=== PATIENT | female | born 1990 | race Caucasian/White ===

== ENCOUNTER 2022-12-18 07:19 | Inpatient (IN) ==
[2022-12-18] MEDS ORDERED: LIDOCAINE 1% LOCAL 20 ML VIAL INFIL PRN (09:02)
[2022-12-18] MEDS ORDERED: miSOPROStoL 50 MCG TAB PO ONE (09:02)
[2022-12-18] MEDS ORDERED: OXYTOCIN 30 UNITS/500 ML BAG IV PRN (09:02)
--- NOTE | 2022-12-18 09:08 | Obstetrical Progress Note ---
Date of Service December 18, 2022 Assessment & Plan (1) Post-dates , delivered, current hospitalization: Plan: 32yo G1 @ 40.4 weeks gestation Unremarkable course Here for post dates induction Bedside sono: VT FHR; CAT1 Ctx; Minimal VE:Ft/thick/post Cervidil #1 placed Admission and Anticipated Discharge Date Admission Date: December 18, 2022 Results & Data Vital Signs (Past 12 Hours) Vital Signs Temp Pulse Resp BP 12/18/22 07:44 36.3 C L 18 12/18/22 07:36 90 123/78
[2022-12-18] MEDS ORDERED: Nursing to Pharmacy Communication SCH (09:45)
[2022-12-18 09:51] LABS: Hematocrit (blood only) 36.9 % (37.0-47.0); Hemoglobin 12.7 g/dl (12.0-16.0); Mean Corpuscular Hemoglobin 31.8 pg (25.0-34.0); Mean Corpuscular Hgb Conc 34.4 g/dL (32.0-36.0); Mean Corpuscular Volume 92.3 fL (80.0-100.0); Mean Platelet Volume 10.2 fL (9.4-12.4); Platelet Count 243 K/uL (130-400); RDW Coefficient of Variation 13.2 % (11.5-14.5); RDW Standard Deviation 44.5 fL (36.4-46.3); White Blood Count 10.27 K/ul (4.8-10.8)
[2022-12-18] MEDS ORDERED: miSOPROStoL 50 MCG TAB PO SCH (12:00)
[2022-12-18] MEDS: miSOPROStoL 50 MCG TAB PO SCH ×3 (17:18→23:05)
[2022-12-18] MEDS ORDERED: PENICILLIN G POTASSIUM 6 MU in DEXTROSE 5% 250 ML IV STA (18:58)
--- NOTE | 2022-12-18 20:26 | Obstetrical Progress Note ---
Date of Service December 18, 2022 Assessment & Plan (1) Post-dates , delivered, current hospitalization: Plan: Induction for post dates Pt doing well No complaints FHR; CAT1 Ctx .Mild, irregular Cytotec X 2 given Plan Cervidil after dinner Admission and Anticipated Discharge Date Admission Date: December 18, 2022 Results & Data Vital Signs (Past 12 Hours) Vital Signs Temp Pulse Resp BP 12/18/22 19:00 18 12/18/22 19:00 36.9 C 18 12/18/22 19:02 77 12/18/22 19:02 124/71 12/18/22 15:05 20 12/18/22 15:05 36.6 C 20 12/18/22 15:06 75 12/18/22 15:06 118/66 12/18/22 11:08 71 12/18/22 11:08 /77
[2022-12-18] MEDS ORDERED: DINOPROSTONE 10 MG INSERT PV ONE (20:28)
--- NOTE | 2022-12-18 21:27 | Obstetrical Progress Note ---
Date of Service December 18, 2022 Assessment & Plan (1) Post-dates , delivered, current hospitalization: Plan: Induction of labor FHR; CAT1 Ctx; Minimal VE; ft/thick/post Cervidil placed in vagina Admission and Anticipated Discharge Date Admission Date: December 18, 2022 Results & Data Vital Signs (Past 12 Hours) Vital Signs Temp Pulse Resp BP 12/18/22 19:00 18 12/18/22 19:00 36.9 C 18 12/18/22 19:02 77 12/18/22 19:02 124/71 12/18/22 15:05 20 12/18/22 15:05 36.6 C 20 12/18/22 15:06 75 12/18/22 15:06 118/66 12/18/22 11:08 71 12/18/22 11:08 118/77
[2022-12-19] MEDS: miSOPROStoL 50 MCG TAB PO SCH ×4 (02:28→18:08)
[2022-12-19] MEDS: OXYTOCIN 30 UNITS/500 ML BAG IV PRN (10:08)
[2022-12-19] MEDS: LACTATED RINGER'S 1,000 ML IV PRN ×2 (10:08→19:57)
--- NOTE | 2022-12-19 14:16 | Labor Progress Brief Note ---
Date of Service December 19, 2022 Assessment & Plan Admission and Anticipated Discharge Date Admission Date: December 18, 2022 Physical Exam Genitourinary: Manual OB Exam: + cervical dilation fingertip, + cervical effacement 50% and + station high OB Exam Monitor Tracing: + external FHT monitor used, + external uterine monitor used, + category I and + normal FHT variability Patient remains high and I am unable to break the water at this time. We will continue Pitocin at this time as she is irwin every 2 to 3 minutes. Results & Data Vital Signs (Past 12 Hours) Vital Signs Temp Pulse Resp BP 12/19/22 14:01 82 117/63 12/19/22 12:55 87 130/67 12/19/22 12:02 77 124/75 12/19/22 11:17 36.5 C 71 20 113/64 12/19/22 10:03 85 125/74 12/19/22 08:23 36.8 C 76 136/71 12/19/22 06:59 36.9 C 77 20 123/72 12/19/22 02:56 36.8 C 61 18 120/77
[2022-12-19] MEDS: PENICILLIN G POTASSIUM 3 MU in DEXTROSE 5% 100 ML IV PRN ×3 (16:02→23:57)
--- NOTE | 2022-12-19 18:55 | Labor Progress Brief Note ---
Date of Service December 19, 2022 Assessment & Plan Admission and Anticipated Discharge Date Admission Date: December 18, 2022 Physical Exam Genitourinary: Manual OB Exam: + cervical dilation fingertip, + cervical effacement 50% and + station high OB Exam Monitor Tracing: + external FHT monitor used, + external uterine monitor used, + category I and + normal FHT variability essentially no change in cervix despite maximum Oxytocin now at 21 mU. Contractions are now every 2-3 minutes with pain level mostly 1-2. She was given option to stop Oxytocin and place another Cervidil, stop Oxytocin and place Diaz for mechanical ripening and restart Oxytocin in AM. Patient is in agreement with Diaz bulb tonight and rest overnight with Oxytocin in AM. Results & Data Vital Signs (Past 12 Hours) Vital Signs Temp Pulse Resp BP 12/19/22 18:08 36.7 C 78 20 120/73 12/19/22 17:05 81 120/71 12/19/22 16:04 78 124/72 12/19/22 15:03 77 120/68 12/19/22 14:01 82 117/63 12/19/22 12:55 87 130/67 12/19/22 12:02 77 124/75 12/19/22 11:17 36.5 C 71 20 113/64 12/19/22 10:03 85 125/74 12/19/22 08:23 36.8 C 76 136/71 12/19/22 06:59 36.9 C 77 20 123/72
[2022-12-19] MEDS ORDERED: BUTORPHANOL TARTRATE 1 MG/ML VIAL IV PRN (22:57)
--- NOTE | 2022-12-19 22:57 | Labor Progress Brief Note ---
Date of Service December 19, 2022 Assessment & Plan Admission and Anticipated Discharge Date Admission Date: December 18, 2022 Physical Exam Genitourinary: Manual OB Exam: + cervical dilation fingertip, + cervical effacement 50% and + station high OB Exam Monitor Tracing: + external FHT monitor used, + external uterine monitor used, + category I and + normal FHT variability Diaz inserted into cervix with 30 ml. saline Results & Data Vital Signs (Past 12 Hours) Vital Signs Temp Pulse Resp BP 12/19/22 22:38 71 122/77 12/19/22 19:15 16 12/19/22 19:15 36.6 C 16 12/19/22 19:14 75 128/78 12/19/22 18:08 36.7 C 78 20 120/73 12/19/22 17:05 81 120/71 12/19/22 16:04 78 124/72 12/19/22 15:03 77 120/68 12/19/22 14:01 82 117/63 12/19/22 12:55 87 130/67 12/19/22 12:02 77 124/75 12/19/22 11:17 36.5 C 71 20 113/64
[2022-12-20] MEDS: miSOPROStoL 50 MCG TAB PO SCH ×3 (00:08→19:11)
[2022-12-20] MEDS: PENICILLIN G POTASSIUM 3 MU in DEXTROSE 5% 100 ML IV PRN ×5 (03:57→20:10)
[2022-12-20] MEDS: LACTATED RINGER'S 1,000 ML IV PRN ×3 (08:09→19:36)
[2022-12-20] MEDS: OXYTOCIN 30 UNITS/500 ML BAG IV PRN (08:58)
[2022-12-20] MEDS ORDERED: OXYTOCIN 30 UNITS/500 ML BAG IV PRN (09:15)
[2022-12-20] MEDS ORDERED: Nursing to Pharmacy Communication SCH (09:30)
--- NOTE | 2022-12-20 12:13 | Labor Progress Brief Note ---
Date of Service December 20, 2022 Assessment & Plan Admission and Anticipated Discharge Date Admission Date: December 18, 2022 Physical Exam Genitourinary: Manual OB Exam: + cervical dilation 3 cm, + cervical effacement 60%, + station -2 and + amniotic fluid meconium OB Exam Monitor Tracing: + external FHT monitor used, + external uterine monitor used, + category I and + normal FHT variability AROM with Amni-hook lightly stained meconium fluid Results & Data Vital Signs (Past 12 Hours) Vital Signs Temp Pulse Resp BP 12/20/22 12:01 71 114/68 12/20/22 11:03 20 12/20/22 11:03 36.5 C 20 12/20/22 11:04 69 124/86 12/20/22 09:56 78 126/79 12/20/22 09:00 93 H 20 132/82 12/20/22 07:08 18 12/20/22 07:08 36.6 C 18 12/20/22 07:11 74 122/80 12/20/22 03:05 18 12/20/22 03:05 36.7 C 18 12/20/22 03:06 63 133/84
[2022-12-20] MEDS ORDERED: fentaNYL citrate PF 100 MCG/2 ML VIAL ONE (13:47)
[2022-12-20] MEDS ORDERED: ePHEDrine sulfate 50 MG/ML AMP ONE (13:47)
[2022-12-20] MEDS ORDERED: fentaNYL 2MCG/ML ROPIVACAINE 1.25MG/ML 100 ML BAG EPI ONE (13:48)
[2022-12-20] MEDS ORDERED: LIDOCAINE 2%/EPINEPHRINE 1:200,000 20 ML PF ONE (13:48)
[2022-12-20] MEDS ORDERED: SODIUM CHLORIDE 0.9% PF INJ 10 ML VIAL ONE (13:48)
[2022-12-20] MEDS ORDERED: BUPIVACAINE 0.25% PF 30 ML VIAL ONE (13:48)
[2022-12-20] MEDS ORDERED: NALOXONE HCL 0.4 MG/1 ML VIAL/CARP IV PRN (13:55)
[2022-12-20] MEDS ORDERED: ROPIVACAINE 0.5% PF 5 MG/ML 20 ML VIAL EPI PRN (13:55)
[2022-12-20] MEDS ORDERED: diphenhydrAMINE 50 MG/ML VIAL IV PRN (13:55)
[2022-12-20] MEDS ORDERED: BUPIVACAINE 0.25% PF 30 ML VIAL EPI PRN (13:55)
[2022-12-20] MEDS ORDERED: BUPIVACAINE 0.25% PF 30 ML VIAL EPI STA (13:55)
[2022-12-20] MEDS ORDERED: ePHEDrine sulfate 50 MG/ML AMP IV PRN (13:55)
[2022-12-20] MEDS ORDERED: ONDANSETRON INJ 2 MG/ML 2 ML VIAL IV PRN (13:55)
[2022-12-20] MEDS ORDERED: LIDOCAINE 2% MPF LOCAL 5 ML VIAL EPI PRN (13:55)
[2022-12-20] MEDS ORDERED: fentaNYL citrate PF 100 MCG/2 ML VIAL EPI PRN (13:55)
[2022-12-20] MEDS ORDERED: SODIUM CHLORIDE 0.9% PF INJ 10 ML VIAL EPI PRN (13:55)
[2022-12-20] MEDS ORDERED: SODIUM CHLORIDE 0.9% PF INJ 10 ML VIAL EPI STA (13:55)
[2022-12-20] MEDS ORDERED: LIDOCAINE 2%/EPINEPHRINE 1:200,000 20 ML PF EPI STA (13:55)
[2022-12-20] MEDS ORDERED: fentaNYL citrate PF 100 MCG/2 ML VIAL EPI STA (13:55)
[2022-12-20] MEDS ORDERED: NALOXONE HCL 1 MG in SODIUM CHLORIDE 0.9% 1000ML 1,000 ML IV PRN (13:55)
[2022-12-20] MEDS ORDERED: NALBUPHINE HCL INJ 10 MG/ML AMP IV PRN (13:55)
--- NOTE | 2022-12-20 13:55 | Anesthesiology Consultation ---
Date of Service December 20, 2022 Assessment & Plan ASA ASA2 Proposed Anesthesia Anesthesia Type: General and Labor Epidural Risk / Benefits Reviewed With: PT / POA / Parent / Guardian, Accepts Plan and Informed Consent Obtained History Height/Weight Height: 5 ft 1 in Weight: 92.986 kg Allergies Allergy/AdvReac Type Severity Reaction Status Date / Time No Known Allergies Allergy Verified 05/17/18 10:03 Medications Home Medications Medication Instructions Recorded Confirmed Last Taken prenat.vits,ledy,xkl-osau-kvajf 1 tab PO DAILY 12/18/22 12/18/22 12/17/22 Active Medications Generic Name Dose Route Start Last Admin Trade Name Freq PRN Reason Stop Dose Admin Lactated Ringer's 1,000 mls @ 125 mls/hr 12/18/22 09:02 12/20/22 14:16 Lr IV 12/22/22 09:01 999 mls/hr .Q8H PRN Administration L&D Protocol Protocol Penicillin G Potassium 3 mu/ 106 mls @ 100 mls/hr 12/18/22 21:55 12/20/22 11:59 Dextrose IV 12/28/22 21:54 106 mls/hr Q4H PRN Administration GBS(+) Until Delivery Oxytocin 30 units in 500 mls @ 19 mls/hr 12/19/22 09:26 12/20/22 13:30 Pitocin IV 12/21/22 09:25 1.14 units/hr .Q24H PRN 19 mls/hr Labor Induction/Augmentation Titration Protocol 1.14 UNITS/HR Past Medical History Medical History Migraine Exercise / Class Metabolic Activity II 4-5 Yardwork/Stairs/Walk up hill Past Family History Family History Mother Diabetes mellitus, type 2 Past Surgical History Surgical History History of tooth extraction WISDOM TEETH Hx of LASIK Past Anesthesia History No Hx of Anesthesia Complications and No Family Hx of Anesthesia Complications History of PONV No Hx of PONV and No Hx of Motion Sickness Social History Smoking Status: Never smoker Do You Dip or Chew Tobacco: No Hx Alcohol Use: No Alcohol type: beer and wine alcohol intake frequency: a few times a week Hx Substance Use: No Review of Systems denies fever/cough/ colds/ chest pain/ SOB/ OLI denies OLI Physical Exam Vital Signs Last Vital Signs Temp 36.5 C 12/20/22 11:03 Pulse 108 H 12/20/22 14:54 Resp 20 12/20/22 11:03 BP 139/69 12/20/22 14:54 Pulse Ox 97 12/20/22 14:51 ENMT Mouth: no TMJ abnormality and no dentition abnormality Thyromental Distance: > or= 3.5 Finger Breadths Mallampati Class: II Neck neck extension not limited Respiratory normal respiratory effort; no respiratory distress Auscultation: lungs clear to auscultation bilaterally Cardiovascular Rate/Rhythm: regular rate and regular rhythm Neurologic moves all extremities Psychiatric Orientation: alert and oriented x 3 Testing Laboratory Results 12/18/22 09:15 Blood Type A Positive 12/18/22 09:15 Antibody Screen NEGATIVE 12/18/22 09:15
--- NOTE | 2022-12-20 16:32 | Labor Progress Brief Note ---
Date of Service December 20, 2022 Assessment & Plan Admission and Anticipated Discharge Date Admission Date: December 18, 2022 Physical Exam Genitourinary: Manual OB Exam: + cervical dilation 4 cm, + cervical effacement 70% and + station -2 OB Exam Monitor Tracing: + external FHT monitor used, + external uterine monitor used, + category I and + normal FHT variability Results & Data Vital Signs (Past 12 Hours) Vital Signs Temp Pulse Resp BP Pulse Ox 12/20/22 16:26 73 100 12/20/22 16:21 89 100 12/20/22 16:22 93 H 92 12/20/22 16:16 78 132/69 100 12/20/22 16:11 71 99 12/20/22 16:06 72 98 12/20/22 16:03 78 128/66 12/20/22 16:01 71 98 12/20/22 15:56 73 98 12/20/22 15:51 74 97 12/20/22 15:47 81 129/68 12/20/22 15:46 80 96 12/20/22 15:41 78 97 12/20/22 15:36 76 97 12/20/22 15:31 93 H 97 12/20/22 15:32 86 131/69 12/20/22 15:26 96 H 99 12/20/22 15:21 89 97 12/20/22 15:17 90 133/60 12/20/22 15:16 90 97 12/20/22 15:11 80 96 12/20/22 15:06 94 H 97 12/20/22 15:01 95 H 97 12/20/22 15:00 90 134/71 12/20/22 14:56 108 H 97 12/20/22 14:54 108 H 139/69 12/20/22 14:51 109 H 97 12/20/22 14:49 108 H 135/72 12/20/22 14:46 99 H 96 12/20/22 14:41 88 98 12/20/22 14:40 102 H 139/73 12/20/22 14:38 89 135/71 12/20/22 14:36 87 137/79 97 12/20/22 14:34 82 132/72 12/20/22 14:31 88 144/74 H 100 12/20/22 14:26 84 99 12/20/22 14:21 88 100 12/20/22 14:16 84 100 12/20/22 14:11 75 99 12/20/22 14:06 72 99 12/20/22 14:01 75 98 12/20/22 13:56 77 100 12/20/22 13:51 70 125/77 99 12/20/22 13:02 73 127/82 12/20/22 12:01 71 114/68 12/20/22 11:03 20 12/20/22 11:03 36.5 C 20 12/20/22 11:04 69 124/86 12/20/22 09:56 78 126/79 12/20/22 09:00 93 H 20 132/82 12/20/22 07:08 18 12/20/22 07:08 36.6 C 18 12/20/22 07:11 74 122/80
[2022-12-20] MEDS ORDERED: SODIUM CHLORIDE 0.9% 250 ML IV PRN (19:20)
--- NOTE | 2022-12-20 19:40 | Labor Progress Brief Note ---
Date of Service December 20, 2022 Assessment & Plan Admission and Anticipated Discharge Date Admission Date: December 18, 2022 Physical Exam Genitourinary: Manual OB Exam: + cervical dilation 6 cm, + cervical effacement 90% and + station -1 OB Exam Monitor Tracing: + external FHT monitor used, + external uterine monitor used, + category I and + normal FHT variability Results & Data Vital Signs (Past 12 Hours) Vital Signs Temp Pulse Resp BP Pulse Ox O2 Del Method 12/20/22 19:00 36.7 C 18 Room Air 12/20/22 19:36 96 H 100 12/20/22 19:31 87 99 12/20/22 19:32 85 132/77 12/20/22 19:26 83 99 12/20/22 19:21 91 H 99 12/20/22 19:19 90 91 12/20/22 19:16 94 H 99 12/20/22 19:17 91 H 138/77 12/20/22 19:11 97 H 98 12/20/22 19:06 89 100 12/20/22 19:02 85 133/68 12/20/22 19:01 94 H 99 12/20/22 18:56 86 97 12/20/22 18:51 86 97 12/20/22 18:46 86 97 12/20/22 18:47 86 130/81 12/20/22 18:41 84 97 12/20/22 18:36 84 98 12/20/22 18:32 84 132/82 12/20/22 18:31 89 99 12/20/22 18:26 97 H 100 12/20/22 18:21 111 H 99 12/20/22 18:16 99 12/20/22 18:16 87 12/20/22 18:16 90 113/58 L 12/20/22 18:11 85 98 12/20/22 18:06 85 99 12/20/22 18:01 99 12/20/22 18:01 82 12/20/22 18:01 86 115/59 L 12/20/22 17:56 90 99 12/20/22 17:51 99 H 99 12/20/22 17:46 89 100 12/20/22 17:47 36.8 C 90 20 122/65 12/20/22 17:41 87 100 12/20/22 17:36 88 100 12/20/22 17:32 90 118/69 12/20/22 17:31 77 100 12/20/22 17:26 79 99 12/20/22 17:21 80 100 12/20/22 17:16 90 100 12/20/22 17:17 88 120/66 12/20/22 17:11 89 100 12/20/22 17:06 88 100 12/20/22 17:01 83 98 12/20/22 17:02 85 124/68 12/20/22 16:56 79 99 12/20/22 16:51 82 99 12/20/22 16:46 76 122/66 100 12/20/22 16:41 74 99 12/20/22 16:36 78 100 12/20/22 16:31 87 100 12/20/22 16:32 80 123/58 L 12/20/22 16:26 73 100 12/20/22 16:21 89 100 12/20/22 16:22 93 H 92 12/20/22 16:16 78 132/69 100 12/20/22 16:11 71 99 12/20/22 16:06 72 98 12/20/22 16:03 78 128/66 12/20/22 16:01 71 98 12/20/22 15:56 73 98 12/20/22 15:51 74 97 12/20/22 15:47 81 129/68 12/20/22 15:46 80 96 12/20/22 15:41 78 97 12/20/22 15:36 76 97 12/20/22 15:31 93 H 97 12/20/22 15:32 86 131/69 12/20/22 15:26 96 H 99 12/20/22 15:21 89 97 12/20/22 15:17 90 133/60 12/20/22 15:16 90 97 12/20/22 15:11 80 96 12/20/22 15:06 94 H 97 12/20/22 15:01 95 H 97 12/20/22 15:00 90 134/71 12/20/22 14:56 108 H 97 12/20/22 14:54 108 H 139/69 12/20/22 14:51 109 H 97 12/20/22 14:49 108 H 135/72 12/20/22 14:46 99 H 96 12/20/22 14:41 88 98 12/20/22 14:40 102 H 139/73 12/20/22 14:38 89 135/71 12/20/22 14:36 87 137/79 97 12/20/22 14:34 82 132/72 12/20/22 14:31 88 144/74 H 100 12/20/22 14:26 84 99 12/20/22 14:21 88 100 12/20/22 14:16 84 100 12/20/22 14:11 75 99 12/20/22 14:06 72 99 12/20/22 14:01 75 98 12/20/22 13:56 77 100 12/20/22 13:51 70 125/77 99 12/20/22 13:02 73 127/82 12/20/22 12:01 71 114/68 12/20/22 11:03 20 12/20/22 11:03 36.5 C 20 12/20/22 11:04 69 124/86 12/20/22 09:56 78 126/79 12/20/22 09:00 93 H 20 132/82
[2022-12-20] MEDS: fentaNYL 2MCG/ML ROPIVACAINE 1.25MG/ML 100 ML BAG EPI PRN (21:36)
[2022-12-21] MEDS ORDERED: fentaNYL citrate PF 100 MCG/2 ML VIAL ONE ×3 (00:03→13:35)
[2022-12-21] MEDS: PENICILLIN G POTASSIUM 3 MU in DEXTROSE 5% 100 ML IV PRN ×3 (00:10→08:35)
--- NOTE | 2022-12-21 00:12 | Anesthesia Procedure Note ---
Date of Service December 21, 2022 Anesthesia Epidural Re-Dose Vital Signs Temp Pulse Resp BP Pulse Ox O2 Del Method 36.8 C 89 18 139/76 96 Room Air 12/20/22 23:47 12/21/22 00:06 12/20/22 23:47 12/21/22 00:02 12/21/22 00:06 12/20/22 19:00 Notes Pain Intensity: 10 Dilatation (cm): 7.5 Effacement (%): 90 Called by nursing to evaluate epidural as the patient is having increased pain. The epidural was re-dosed with the following medications (all medications via epidural route) after negative aspiration of the epidural catheter for CSF/HEME. 2ml 2% lidocaine with epi, 3mL ropivacaine 0.5% and 100 mcg fetanyl via epidural After Epidural Re-Dose Mental Status: alert / awake / arousable Pain: improving with treatment Airway Patency, RR, SpO2: stable & adequate BP & HR: stable & adequate
[2022-12-21] MEDS: LACTATED RINGER'S 1,000 ML IV PRN ×2 (01:35→12:26)
[2022-12-21] MEDS: fentaNYL 2MCG/ML ROPIVACAINE 1.25MG/ML 100 ML BAG EPI PRN ×3 (03:25→12:47)
[2022-12-21] MEDS ORDERED: NURSING L&D Epidural Breakthrough Pain Update ONE (04:16)
--- NOTE | 2022-12-21 06:56 | Labor Progress Brief Note ---
Date of Service December 21, 2022 Assessment & Plan Admission and Anticipated Discharge Date Admission Date: December 18, 2022 Physical Exam Genitourinary: Manual OB Exam: + cervical effacement 100% and + station (Cervix with anterior lip on right side) 0 OB Exam Monitor Tracing: + external FHT monitor used, + external uterine monitor used, + category I and + normal FHT variability Results & Data Vital Signs (Past 12 Hours) Vital Signs Temp Pulse Resp BP Pulse Ox O2 Del Method 12/20/22 22:48 36.9 C 16 12/20/22 19:00 36.7 C 18 Room Air 12/21/22 06:51 81 100 12/21/22 06:46 88 138/84 100 12/21/22 06:41 108 H 97 12/21/22 06:36 96 H 100 12/21/22 06:31 91 H 100 12/21/22 06:32 90 140/77 12/21/22 06:28 102 H 93 12/21/22 06:26 105 H 98 12/21/22 06:21 74 96 12/21/22 06:16 96 12/21/22 06:16 76 12/21/22 06:16 75 130/69 12/21/22 06:11 75 97 12/21/22 06:06 74 97 12/21/22 06:01 75 133/73 98 12/21/22 05:56 76 97 12/21/22 05:51 74 98 12/21/22 05:47 90 143/85 H 12/21/22 05:46 76 99 12/21/22 05:41 75 97 12/21/22 05:36 70 99 12/21/22 05:33 18 12/21/22 05:33 36.9 C 18 12/21/22 05:31 98 H 98 12/21/22 05:32 90 132/65 12/21/22 05:26 84 96 12/21/22 05:21 90 95 12/21/22 05:16 86 96 12/21/22 05:17 86 135/74 12/21/22 05:11 83 95 12/21/22 05:06 87 95 12/21/22 05:02 95 H 136/71 12/21/22 05:01 80 96 12/21/22 04:56 81 97 12/21/22 04:51 89 98 12/21/22 04:47 70 168/90 H 12/21/22 04:46 77 98 12/21/22 04:41 85 98 12/21/22 04:36 82 99 12/21/22 04:33 76 145/84 H 12/21/22 04:31 89 97 12/21/22 04:26 105 H 98 12/21/22 04:21 98 12/21/22 04:21 80 12/21/22 04:21 85 94 12/21/22 04:18 93 H 168/92 H 12/21/22 04:16 85 99 12/21/22 04:13 84 94 12/21/22 04:11 82 98 12/21/22 04:06 91 H 98 12/21/22 04:01 79 95 12/21/22 04:02 88 136/70 93 12/21/22 03:56 76 97 12/21/22 03:51 88 99 12/21/22 03:46 77 143/87 H 96 12/21/22 03:41 73 97 12/21/22 03:36 76 95 12/21/22 03:32 77 159/87 H 12/21/22 03:31 77 97 12/21/22 03:29 18 12/21/22 03:29 36.9 C 18 12/21/22 03:26 88 98 12/21/22 03:21 85 96 12/21/22 03:16 91 H 142/89 H 98 12/21/22 03:11 87 98 12/21/22 03:06 80 96 12/21/22 03:01 98 12/21/22 03:01 83 12/21/22 03:01 78 133/74 12/21/22 02:56 100 H 98 12/21/22 02:51 74 95 12/21/22 02:46 86 97 12/21/22 02:47 85 134/73 12/21/22 02:41 83 94 12/21/22 02:37 95 H 91 12/21/22 02:36 71 95 12/21/22 02:32 77 129/67 12/21/22 02:31 75 96 12/21/22 02:26 75 96 12/21/22 02:21 75 97 12/21/22 02:18 91 H 93 12/21/22 02:16 76 128/66 96 12/21/22 02:11 75 95 12/21/22 02:06 75 95 12/21/22 02:03 77 128/62 12/21/22 02:01 71 96 12/21/22 01:56 74 95 12/21/22 01:51 75 95 12/21/22 01:46 77 126/60 95 12/21/22 01:41 86 96 12/21/22 01:36 85 97 12/21/22 01:31 36.9 C 88 18 97 12/21/22 01:26 80 96 12/21/22 01:21 108 H 97 12/21/22 01:19 79 94 12/21/22 01:16 95 12/21/22 01:16 77 12/21/22 01:16 81 133/74 12/21/22 01:11 79 95 12/21/22 01:09 80 94 12/21/22 01:06 79 95 12/21/22 01:01 79 135/73 95 12/21/22 00:56 82 96 12/21/22 00:51 79 96 12/21/22 00:46 96 12/21/22 00:46 80 12/21/22 00:46 81 138/70 12/21/22 00:41 89 97 12/21/22 00:36 107 H 94 12/21/22 00:34 88 94 12/21/22 00:33 87 129/66 12/21/22 00:31 95 H 97 12/21/22 00:26 97 H 95 12/21/22 00:21 111 H 95 12/21/22 00:16 97 12/21/22 00:16 109 H 12/21/22 00:16 106 H 139/76 12/21/22 00:11 92 H 96 12/21/22 00:06 89 96 12/21/22 00:01 88 96 12/21/22 00:02 90 139/76 12/20/22 23:56 90 96 12/20/22 23:51 90 96 12/20/22 23:46 119 H 96 12/20/22 23:47 36.8 C 93 H 18 135/63 12/20/22 23:41 106 H 95 12/20/22 23:36 92 H 97 12/20/22 23:32 82 139/82 12/20/22 23:31 91 H 97 12/20/22 23:26 96 H 98 12/20/22 23:21 97 H 97 12/20/22 23:17 90 136/79 12/20/22 23:16 88 96 12/20/22 23:11 100 H 95 12/20/22 23:06 84 97 12/20/22 23:03 91 H 135/88 12/20/22 23:01 93 H 95 12/20/22 22:56 89 97 12/20/22 22:51 99 H 96 12/20/22 22:48 93 H 142/92 H 12/20/22 22:46 99 H 97 12/20/22 22:41 89 96 12/20/22 22:36 98 H 97 12/20/22 22:31 104 H 138/87 98 12/20/22 22:26 102 H 95 12/20/22 22:21 81 97 12/20/22 22:16 83 132/83 97 12/20/22 22:11 87 96 12/20/22 22:06 84 96 12/20/22 22:01 88 96 12/20/22 22:02 86 134/83 12/20/22 21:56 85 97 12/20/22 21:51 89 98 12/20/22 21:47 90 136/80 12/20/22 21:46 91 H 99 12/20/22 21:41 107 H 98 12/20/22 21:36 97 H 100 12/20/22 21:31 87 100 12/20/22 21:32 90 137/87 12/20/22 21:26 94 H 100 12/20/22 21:21 97 H 100 12/20/22 21:20 18 12/20/22 21:20 36.6 C 18 12/20/22 21:16 98 12/20/22 21:16 82 06 21:16 83 143/79 H 12/20/22 21:11 81 98 12/20/22 21:06 83 97 12/20/22 21:04 87 133/77 12/20/22 21:01 104 H 98 12/20/22 20:56 85 97 12/20/22 20:51 82 96 12/20/22 20:48 86 141/85 H 12/20/22 20:46 88 97 12/20/22 20:41 88 97 12/20/22 20:36 89 97 12/20/22 20:33 85 142/79 H 12/20/22 20:31 86 96 12/20/22 20:26 88 97 12/20/22 20:21 82 97 12/20/22 20:16 88 98 12/20/22 20:17 82 142/86 H 12/20/22 20:11 90 99 12/20/22 20:06 92 H 98 12/20/22 20:01 87 139/81 98 12/20/22 19:56 92 H 97 12/20/22 19:51 100 H 99 12/20/22 19:46 96 H 138/80 98 12/20/22 19:41 95 H 98 12/20/22 19:36 96 H 100 12/20/22 19:31 87 99 12/20/22 19:32 85 132/77 12/20/22 19:26 83 99 12/20/22 19:21 91 H 99 12/20/22 19:19 90 91 12/20/22 19:16 94 H 99 12/20/22 19:17 91 H 138/77 12/20/22 19:11 97 H 98 12/20/22 19:06 89 100 12/20/22 19:02 85 133/68 12/20/22 19:01 94 H 99 12/20/22 18:56 86 97
--- NOTE | 2022-12-21 08:02 | Obstetrical Progress Note ---
Date of Service December 21, 2022 Assessment & Plan (1) 40 weeks gestation of : Plan: Patient to continue pushing(with pit augmentation) anticipate Admission and Anticipated Discharge Date Admission Date: December 18, 2022 Subjective Patient more uncomfortable with contractions. Feeling pressure Physical Exam Genitourinary: FHT: baseline 150, mod variability, +accels, variable decls [place]: q3-4 min Cx: ant lip was reduced with pushing, 100, +1 Pushed well with assistance Results & Data Vital Signs (Past 12 Hours) Vital Signs Temp Pulse Resp BP Pulse Ox 12/20/22 22:48 36.9 C 16 12/21/22 07:59 117 H 88 L 12/21/22 07:56 93 H 97 12/21/22 07:51 101 H 100 12/21/22 07:46 120 H 97 12/21/22 07:41 104 H 99 12/21/22 07:36 95 H 98 12/21/22 07:31 78 100 12/21/22 07:32 80 150/73 H 12/21/22 07:26 80 100 12/21/22 07:15 20 12/21/22 07:15 36.9 C 20 12/21/22 07:21 78 100 12/21/22 07:16 82 100 12/21/22 07:17 74 149/80 H 12/21/22 07:11 88 100 12/21/22 07:09 85 158/95 H 12/21/22 07:06 87 100 12/21/22 07:01 88 100 12/21/22 07:02 86 153/92 H 12/21/22 06:56 83 100 12/21/22 06:51 81 100 12/21/22 06:46 88 138/84 100 12/21/22 06:41 108 H 97 12/21/22 06:36 96 H 100 12/21/22 06:31 91 H 100 12/21/22 06:32 90 140/77 12/21/22 06:28 102 H 93 12/21/22 06:26 105 H 98 12/21/22 06:21 74 96 12/21/22 06:16 96 12/21/22 06:16 76 12/21/22 06:16 75 130/69 12/21/22 06:11 75 97 12/21/22 06:06 74 97 12/21/22 06:01 75 133/73 98 12/21/22 05:56 76 97 12/21/22 05:51 74 98 12/21/22 05:47 90 143/85 H 12/21/22 05:46 76 99 12/21/22 05:41 75 97 12/21/22 05:36 70 99 12/21/22 05:33 18 12/21/22 05:33 36.9 C 18 12/21/22 05:31 98 H 98 12/21/22 05:32 90 132/65 12/21/22 05:26 84 96 12/21/22 05:21 90 95 12/21/22 05:16 86 96 12/21/22 05:17 86 135/74 12/21/22 05:11 83 95 12/21/22 05:06 87 95 12/21/22 05:02 95 H 136/71 12/21/22 05:01 80 96 12/21/22 04:56 81 97 12/21/22 04:51 89 98 12/21/22 04:47 70 168/90 H 12/21/22 04:46 77 98 12/21/22 04:41 85 98 12/21/22 04:36 82 99 12/21/22 04:33 76 145/84 H 12/21/22 04:31 89 97 12/21/22 04:26 105 H 98 12/21/22 04:21 98 12/21/22 04:21 80 12/21/22 04:21 85 94 12/21/22 04:18 93 H 168/92 H 12/21/22 04:16 85 99 12/21/22 04:13 84 94 12/21/22 04:11 82 98 12/21/22 04:06 91 H 98 12/21/22 04:01 79 95 12/21/22 04:02 88 136/70 93 12/21/22 03:56 76 97 12/21/22 03:51 88 99 12/21/22 03:46 77 143/87 H 96 12/21/22 03:41 73 97 12/21/22 03:36 76 95 12/21/22 03:32 77 159/87 H 12/21/22 03:31 77 97 12/21/22 03:29 18 12/21/22 03:29 36.9 C 18 12/21/22 03:26 88 98 12/21/22 03:21 85 96 12/21/22 03:16 91 H 142/89 H 98 12/21/22 03:11 87 98 12/21/22 03:06 80 96 12/21/22 03:01 98 12/21/22 03:01 83 12/21/22 03:01 78 133/74 12/21/22 02:56 100 H 98 12/21/22 02:51 74 95 12/21/22 02:46 86 97 12/21/22 02:47 85 134/73 12/21/22 02:41 83 94 12/21/22 02:37 95 H 91 12/21/22 02:36 71 95 12/21/22 02:32 77 129/67 12/21/22 02:31 75 96 12/21/22 02:26 75 96 12/21/22 02:21 75 97 12/21/22 02:18 91 H 93 12/21/22 02:16 76 128/66 96 12/21/22 02:11 75 95 12/21/22 02:06 75 95 12/21/22 02:03 77 128/62 12/21/22 02:01 71 96 12/21/22 01:56 74 95 12/21/22 01:51 75 95 12/21/22 01:46 77 126/60 95 12/21/22 01:41 86 96 12/21/22 01:36 85 97 12/21/22 01:31 36.9 C 88 18 97 12/21/22 01:26 80 96 12/21/22 01:21 108 H 97 12/21/22 01:19 79 94 12/21/22 01:16 95 12/21/22 01:16 77 06 01:16 81 133/74 12/21/22 01:11 79 95 12/21/22 01:09 80 94 12/21/22 01:06 79 95 12/21/22 01:01 79 135/73 95 12/21/22 00:56 82 96 12/21/22 00:51 79 96 12/21/22 00:46 96 12/21/22 00:46 80 12/21/22 00:46 81 138/70 0615/23 00:41 89 97 12/21/22 00:36 107 H 94 12/21/22 00:34 88 94 12/21/22 00:33 87 129/66 12/21/22 00:31 95 H 97 12/21/22 00:26 97 H 95 12/21/22 00:21 111 H 95 12/21/22 00:16 97 12/21/22 00:16 109 H 12/21/22 00:16 106 H 139/76 12/21/22 00:11 92 H 96 12/21/22 00:06 89 96 12/21/22 00:01 88 96 12/21/22 00:02 90 139/76 12/20/22 23:56 90 96 12/20/22 23:51 90 96 12/20/22 23:46 119 H 96 12/20/22 23:47 36.8 C 93 H 18 135/63 12/20/22 23:41 106 H 95 12/20/22 23:36 92 H 97 12/20/22 23:32 82 139/82 12/20/22 23:31 91 H 97 12/20/22 23:26 96 H 98 12/20/22 23:21 97 H 97 12/20/22 23:17 90 136/79 12/20/22 23:16 88 96 12/20/22 23:11 100 H 95 12/20/22 23:06 84 97 12/20/22 23:03 91 H 135/88 12/20/22 23:01 93 H 95 12/20/22 22:56 89 97 12/20/22 22:51 99 H 96 12/20/22 22:48 93 H 142/92 H 12/20/22 22:46 99 H 97 12/20/22 22:41 89 96 12/20/22 22:36 98 H 97 12/20/22 22:31 104 H 138/87 98 12/20/22 22:26 102 H 95 12/20/22 22:21 81 97 12/20/22 22:16 83 132/83 97 12/20/22 22:11 87 96 12/20/22 22:06 84 96 12/20/22 22:01 88 96 12/20/22 22:02 86 134/83 12/20/22 21:56 85 97 06/14/23 21:51 89 98 12/20/22 21:47 90 136/80 12/20/22 21:46 91 H 99 12/20/22 21:41 107 H 98 12/20/22 21:36 97 H 100 12/20/22 21:31 87 100 12/20/22 21:32 90 137/87 12/20/22 21:26 94 H 100 12/20/22 21:21 97 H 100 12/20/22 21:20 18 12/20/22 21:20 36.6 C 18 12/20/22 21:16 98 12/20/22 21:16 82 12/20/22 21:16 83 143/79 H 12/20/22 21:11 81 98 12/20/22 21:06 83 97 12/20/22 21:04 87 133/77 12/20/22 21:01 104 H 98 12/20/22 20:56 85 97 12/20/22 20:51 82 96 12/20/22 20:48 86 141/85 H 12/20/22 20:46 88 97 12/20/22 20:41 88 97 12/20/22 20:36 89 97 12/20/22 20:33 85 142/79 H 12/20/22 20:31 86 96 12/20/22 20:26 88 97 12/20/22 20:21 82 97 12/20/22 20:16 88 98 12/20/22 20:17 82 142/86 H 12/20/22 20:11 90 99 12/20/22 20:06 92 H 98
[2022-12-21] MEDS ORDERED: LIDOCAINE 2% 20 MG/ML 5 ML SYR IV ONE (09:19)
--- NOTE | 2022-12-21 09:36 | Anesthesia Procedure Note ---
Date of Service December 21, 2022 Anesthesia Epidural Re-Dose Vital Signs Temp Pulse Resp BP Pulse Ox O2 Del Method 36.9 C 75 22 130/63 99 Room Air 12/21/22 07:15 12/21/22 09:33 12/21/22 09:30 12/21/22 09:33 12/21/22 09:31 12/20/22 19:00 Notes Pain Intensity: 9 Dilatation (cm): 10.0 Effacement (%): 100 Called by nursing to evaluate epidural as the patient is having increased pain. The epidural was re-dosed with the following medications (all medications via epidural route) after negative aspiration of the epidural catheter for CSF/HEME. 2% lidocaine 5ml with fentanyl 100mcg. After Epidural Re-Dose Mental Status: alert / awake / arousable Pain: improving with treatment Airway Patency, RR, SpO2: stable & adequate BP & HR: stable & adequate
--- NOTE | 2022-12-21 12:10 | Obstetrical Progress Note ---
Date of Service December 21, 2022 Assessment & Plan (1) 40 weeks gestation of : Plan: Patient to continue pushing(with pit augmentation) Patient counseled that if there is maternal exhaustion, no longer desired to push as she has been 4-day induction, has been 9 cm since 1 AM, that she more likely may end up with a . She desires to keep pushing at this time and let us know if she wants to stop. Otherwise we will give her a total of 3 hours of pushing Admission and Anticipated Discharge Date Admission Date: December 18, 2022 Subjective Patient has been pushing for 45 minutes, after receiving a bolus of her epidural and laboring down. States she feels tired but still wants to push for a little bit longer Physical Exam Genitourinary: heart tracing: Baseline 140 and 145, moderate variability, positive accelerations, early decelerations Tocometer: Contractions every 3 minutes, currently on oxytocin Cervix: 10/100/+1, almost pushes to +2, caput noted Results & Data Vital Signs (Past 12 Hours) Vital Signs Temp Pulse Resp BP Pulse Ox 12/21/22 12:02 100 H 94 12/21/22 12:00 102 H 87 L 12/21/22 11:57 96 H 96 12/21/22 11:50 22 12/21/22 11:50 22 12/21/22 11:52 99 H 95 12/21/22 11:35 22 12/21/22 11:35 22 12/21/22 11:47 107 H 96 12/21/22 11:46 113 H 82 L 12/21/22 11:42 121 H 98 12/21/22 11:40 110 H 87 L 12/21/22 11:37 106 H 99 12/21/22 11:32 100 H 96 12/21/22 11:28 99 H 135/92 12/21/22 11:27 36.7 C 12/21/22 11:26 107 H 100 12/21/22 11:21 98 12/21/22 11:21 112 H 12/21/22 11:21 108 H 83 L 12/21/22 11:16 95 H 99 12/21/22 11:13 93 H 126/72 12/21/22 11:11 82 99 12/21/22 11:00 18 12/21/22 11:00 18 12/21/22 11:06 85 98 12/21/22 10:58 88 12/21/22 11:01 95 H 99 12/21/22 10:56 88 99 12/21/22 10:51 90 98 12/21/22 10:30 18 12/21/22 10:30 18 12/21/22 10:46 77 99 12/21/22 10:42 82 126/76 12/21/22 10:41 79 98 12/21/22 10:36 100 H 99 12/21/22 10:31 90 98 12/21/22 10:27 80 117/69 12/21/22 10:26 80 99 12/21/22 10:21 66 99 12/21/22 10:16 91 H 98 12/21/22 10:12 96 H 108/60 12/21/22 10:11 91 H 100 12/21/22 10:00 18 12/21/22 10:00 18 12/21/22 10:06 114 H 100 12/21/22 10:01 87 98 12/21/22 09:57 97 H 112/62 12/21/22 09:56 86 97 12/21/22 09:51 78 95 12/21/22 09:46 88 96 12/21/22 09:41 86 112/59 L 96 12/21/22 09:39 92 H 124/73 12/21/22 09:37 83 122/62 12/21/22 09:36 89 94 12/21/22 09:35 86 125/62 12/21/22 09:30 22 12/21/22 09:30 22 12/21/22 09:33 75 130/63 12/21/22 09:31 95 H 99 12/21/22 09:32 92 H 139/58 L 12/21/22 09:29 83 136/89 12/21/22 09:26 97 H 99 12/21/22 09:21 81 96 12/21/22 09:16 76 98 12/21/22 09:17 75 136/75 12/21/22 09:11 82 98 12/21/22 09:06 88 96 12/21/22 09:00 20 12/21/22 09:00 20 12/21/22 09:01 80 150/90 H 100 12/21/22 08:56 96 H 100 12/21/22 08:45 22 12/21/22 08:45 22 12/21/22 08:51 86 98 12/21/22 08:46 87 96 12/21/22 08:47 84 135/87 12/21/22 08:41 102 H 97 12/21/22 08:36 104 H 97 12/21/22 08:31 94 H 96 12/21/22 08:28 103 H 86 L 12/21/22 08:26 95 H 96 12/21/22 08:21 96 12/21/22 08:21 96 H 12/21/22 08:21 119 H 86 L 12/21/22 08:16 91 H 132/81 97 12/21/22 08:15 100 H 22 88 L 12/21/22 08:11 96 H 97 12/21/22 08:08 105 H 91 12/21/22 08:06 94 H 99 12/21/22 07:44 20 12/21/22 07:44 20 12/21/22 08:01 95 H 151/77 H 98 12/21/22 07:59 117 H 88 L 12/21/22 07:56 93 H 97 12/21/22 07:51 101 H 100 12/21/22 07:46 120 H 97 12/21/22 07:41 104 H 99 12/21/22 07:36 95 H 98 12/21/22 07:31 78 100 12/21/22 07:32 80 150/73 H 12/21/22 07:26 80 100 12/21/22 07:15 20 12/21/22 07:15 36.9 C 20 12/21/22 07:21 78 100 12/21/22 07:16 82 100 12/21/22 07:17 74 149/80 H 12/21/22 07:11 88 100 12/21/22 07:09 85 158/95 H 12/21/22 07:06 87 100 12/21/22 07:01 88 100 12/21/22 07:02 86 153/92 H 12/21/22 06:56 83 100 12/21/22 06:51 81 100 12/21/22 06:46 88 138/84 100 12/21/22 06:41 108 H 97 12/21/22 06:36 96 H 100 12/21/22 06:31 91 H 100 12/21/22 06:32 90 140/77 12/21/22 06:28 102 H 93 12/21/22 06:26 105 H 98 12/21/22 06:21 74 96 12/21/22 06:16 96 12/21/22 06:16 76 12/21/22 06:16 75 130/69 12/21/22 06:11 75 97 12/21/22 06:06 74 97 12/21/22 06:01 75 133/73 98 12/21/22 05:56 76 97 12/21/22 05:51 74 98 12/21/22 05:47 90 143/85 H 12/21/22 05:46 76 99 12/21/22 05:41 75 97 12/21/22 05:36 70 99 12/21/22 05:33 18 12/21/22 05:33 36.9 C 18 12/21/22 05:31 98 H 98 12/21/22 05:32 90 132/65 12/21/22 05:26 84 96 12/21/22 05:21 90 95 12/21/22 05:16 86 96 12/21/22 05:17 86 135/74 12/21/22 05:11 83 95 12/21/22 05:06 87 95 12/21/22 05:02 95 H 136/71 12/21/22 05:01 80 96 12/21/22 04:56 81 97 12/21/22 04:51 89 98 12/21/22 04:47 70 168/90 H 12/21/22 04:46 77 98 12/21/22 04:41 85 98 12/21/22 04:36 82 99 12/21/22 04:33 76 145/84 H 12/21/22 04:31 89 97 12/21/22 04:26 105 H 98 12/21/22 04:21 98 12/21/22 04:21 80 12/21/22 04:21 85 94 12/21/22 04:18 93 H 168/92 H 12/21/22 04:16 85 99 12/21/22 04:13 84 94 12/21/22 04:11 82 98 12/21/22 04:06 91 H 98 12/21/22 04:01 79 95 06/15/23 04:02 88 136/70 93 12/21/22 03:56 76 97 12/21/22 03:51 88 99 12/21/22 03:46 77 143/87 H 96 12/21/22 03:41 73 97 12/21/22 03:36 76 95 12/21/22 03:32 77 159/87 H 12/21/22 03:31 77 97 12/21/22 03:29 18 12/21/22 03:29 36.9 C 18 12/21/22 03:26 88 98 12/21/22 03:21 85 96 12/21/22 03:16 91 H 142/89 H 98 12/21/22 03:11 87 98 12/21/22 03:06 80 96 12/21/22 03:01 98 12/21/22 03:01 83 12/21/22 03:01 78 133/74 12/21/22 02:56 100 H 98 12/21/22 02:51 74 95 12/21/22 02:46 86 97 12/21/22 02:47 85 134/73 12/21/22 02:41 83 94 12/21/22 02:37 95 H 91 12/21/22 02:36 71 95 12/21/22 02:32 77 129/67 12/21/22 02:31 75 96 12/21/22 02:26 75 96 12/21/22 02:21 75 97 12/21/22 02:18 91 H 93 12/21/22 02:16 76 128/66 96 12/21/22 02:11 75 95 12/21/22 02:06 75 95 12/21/22 02:03 77 128/62 12/21/22 02:01 71 96 12/21/22 01:56 74 95 12/21/22 01:51 75 95 12/21/22 01:46 77 126/60 95 12/21/22 01:41 86 96 12/21/22 01:36 85 97 12/21/22 01:31 36.9 C 88 18 97 12/21/22 01:26 80 96 12/21/22 01:21 108 H 97 12/21/22 01:19 79 94 12/21/22 01:16 95 12/21/22 01:16 77 12/21/22 01:16 81 133/74 12/21/22 01:11 79 95 12/21/22 01:09 80 94 12/21/22 01:06 79 95 12/21/22 01:01 79 135/73 95 12/21/22 00:56 82 96 12/21/22 00:51 79 96 12/21/22 00:46 96 12/21/22 00:46 80 12/21/22 00:46 81 138/70 12/21/22 00:41 89 97 12/21/22 00:36 107 H 94 12/21/22 00:34 88 94 12/21/22 00:33 87 129/66 12/21/22 00:31 95 H 97 12/21/22 00:26 97 H 95 12/21/22 00:21 111 H 95 12/21/22 00:16 97 12/21/22 00:16 109 H 12/21/22 00:16 106 H 139/76 12/21/22 00:11 92 H 96
--- NOTE | 2022-12-21 12:24 | Discharge Summary ---
Date of Service December 21, 2022 Admission HPI Per Admitting Provider Patient is a 32-year-old -0-1-0 admitted at 40 weeks for postdates induction. She was on day 4 of induction, with failure to progress. Admission Exam (Per Admitting) Constitutional WD/WN, vitals as above Respiratory normal respiratory effort, lungs clear to auscultation Cardiovascular RRR, no murmur, no edema Gastrointestinal (Abdomen) normal bowel sounds, soft, nontender, no hepatosplenomegaly Skin no rashes, warm and dry Hospital Course (1) 40 weeks gestation of : Patient to continue pushing(with pit augmentation) Patient counseled that if there is maternal exhaustion, no longer desired to pus h as she has been 4-day induction, has been 9 cm since 1 AM, that she more likely may end up with a . She desires to keep pushing at this time and let us know if she wants to stop. Otherwise we will give her a total of 3 hours of pushing (2) Normal course: We will plan to discharge home today if baby is discharged Instructions reviewed with patient Follow-up in clinic for wound check in 2 weeks
[2022-12-21] MEDS ORDERED: LIDOCAINE 2%/EPINEPHRINE 1:200,000 20 ML PF ONE (12:45)
[2022-12-21] MEDS ORDERED: ceFAZolin 2000MG 2,000 MG/15 ML SYR IV ONE (12:45)
[2022-12-21] MEDS ORDERED: AZITHROMYCIN 500 MG in DEXTROSE 5% 250 ML IV ONE (12:45)
[2022-12-21] MEDS ORDERED: CITRIC ACID/SODIUM CITRATE 15 ML UDC ONE (12:49)
[2022-12-21 12:53] LABS: Hemoglobin 13.3 g/dl (12.0-16.0); Mean Corpuscular Volume 91.6 fL (80.0-100.0); Mean Platelet Volume 10.4 fL (9.4-12.4); Platelet Count 216 K/uL (130-400); RDW Coefficient of Variation 13.4 % (11.5-14.5); RDW Standard Deviation 44.8 fL (36.4-46.3); Red Blood Count 4.15 M/uL (4.20-5.40); White Blood Count 23.52 K/ul (4.8-10.8)
[2022-12-21 13:17] LABS: Basophils # (auto) 0.07 K/uL (0-0.2); Basophils % (auto) 0.3 %; Eosinophils # (auto) 0.01 K/uL (0-0.50); Immature Granulocytes # (auto) 0.16 K/uL (0.01-0.20); Immature Granulocytes % (auto) 0.7 %; Lymphocytes # (auto) 1.04 K/uL (1.2-3.4); Lymphocytes % (auto) 4.4 %; Monocytes # (auto) 1.22 K/uL (0.11-0.59); Monocytes % (auto) 5.2 %; Neutrophils # (auto) 21.02 K/uL (1.40-6.50); Neutrophils % (auto) 89.4 %
[2022-12-21] MEDS ORDERED: MoRPHine SULFATE PF 1 MG/ML 10 ML AMP/VIAL ONE (13:35)
[2022-12-21] MEDS ORDERED: ONDANSETRON INJ 2 MG/ML 2 ML VIAL IV PRN ×2 (13:56→18:01)
[2022-12-21] MEDS ORDERED: KETOROLAC 30 MG/ML VIAL IV PRN ×2 (13:56→18:01)
[2022-12-21] MEDS ORDERED: BENZOCAINE 20% AER SPR 82.5 GM CAN EXT PRN (13:56)
[2022-12-21] MEDS ORDERED: MAGNESIUM HYDROXIDE SUSP 30 ML UDC PO PRN (13:56)
[2022-12-21] MEDS ORDERED: HYDROCORTISONE ACETATE 25 MG SUPP PR PRN (13:56)
[2022-12-21] MEDS ORDERED: SENNA 8.6 MG TAB PO PRN (13:56)
[2022-12-21] MEDS ORDERED: diphenhydrAMINE Capsule 25 MG CAP PO PRN (13:56)
[2022-12-21] MEDS ORDERED: oxyCODONE/ACETAMINOPHEN 5mg/325mg TAB PO PRN (13:56)
[2022-12-21] MEDS ORDERED: DIPHTHERIA/TETANUS/PERTUSSIS Vaccine (Tdap, Age 7+yrs) 0.5mL SYR/VL IM ONE (13:56)
[2022-12-21] MEDS ORDERED: PROMETHAZINE HCL 25 MG in SODIUM CHLORIDE 0.9% 50 ML IV PRN ×2 (13:56→18:01)
[2022-12-21] MEDS ORDERED: diphenhydrAMINE 50 MG/ML VIAL IV PRN ×2 (13:56→18:01)
[2022-12-21] MEDS ORDERED: PHENYLEPHRINE HCL 10 MG/ML VIAL ONE (14:01)
--- NOTE | 2022-12-21 14:06 | Operative Report ---
Post Operative Report Pre & Post Diagnosis Operation Date: 12/21/22 13:00 Pre-Op Diagnosis: Failure to progress Maternal exhaustion Post-Op Diagnosis: Failure to progress I identified the patient and participated in the time-out.: Yes Procedure Operation Date: 12/21/22 13:00 Primary lower transverse delivery via Pfannenstiel incision Surgeon Priscilla Elder MD, PhD Opal Polisher Dr Roxi AYALA Estimated Blood Loss 800 Findings Consistent with Post-Op Diagnosis Liveborn male delivered at 1330, Apgars 8/9. Weight 3930 g or 8 pounds 10 ounces, intact placenta with three-vessel cord. Cord pH not obtained. Normal- appearing uterus, bilateral fallopian tubes and ovaries seen at time of surgery Fluids 800 mls Specimens Placenta Drains Diaz Complications None Disposition Accompanied Patient To Recovery: No Indications Failure to progress, maternal exhaustion Description of Procedure CD Delivery Note Patient had pushed over 2 hours, no further descent. Noted caput on exam and maternal exhaustion. Patient offered primary Procedure Summary: section was recommended. Risks, benefits and alternatives were discussed including but not limited to infection, bleeding that may require blood products or hysterectomy for life saving measures, injury to surrounding organs including but not limited to bowel, bladder, ureters, tubes and ovaries and/or the baby. Should injury occur it could require longer/additional surgery to repair. Patient was also counselled about risk of DVT/PE, and injury to during delivery. The patient stated understanding and desired to proceed. All questions were answered posed by patient. Prior to being taken to the OR, 2 grams of cefazolin IV 500 mg of azithromycin IV was administered. The patient was taken to the operating room where regional anesthesia was found to be adequate. Prior to monitors being removed FHR was 140s with no decelerations, she was then prepared and draped in the usual sterile fashion in the dorsal supine position with a leftward tilt displacing the uterus. Diaz was draining to gravity. SCDs were on bilateral lower extremities. A pfannenstiel skin incision was then made with the scalpel and carried through to the underlying layer of fascia. The fascia was incised in the midline and the incision extended laterally with the Mccarty scissors. The superior aspect of the facial incision was then grasped with the Vincent clamps, elevated and the underlying rectus muscles dissected off bluntly. Attention was then turned to the inferior aspect of this incision which in a similar fashion was grasped, elevated with the Vincent clamps and the rectus muscle dissected off bluntly. The rectus muscles were in the midline. The peritoneum identified, grasped with the pick-ups and entered sharply with the Metzenbaum scissors. The peritoneal incision was then extended superiorly and inferiorly with good visualization of the bladder. The bladder blade was inserted and the vesicouterine peritoneum was identified, grasped with the pick-ups, and entered sharply with Metzenbaum scissors. This incision was then extended laterally and the bladder flap created digitally and the bladder blade was reinserted. The lower uterine segment was identified and incised in a transverse fashion with the scalpel. The uterine incision was then extended bluntly laterally. Artificial rupture of membranes demonstrated thick meconium. the bladder blade was removed. The fetus was in cephalic presentation. The infant's head delivered atraumatically. The anterior shoulders were delivered followed by the posterior shoulders then the remainder of the body. The 's mouth and nose were bulb suctioned. The umbilical cord was clamped times two and cut. The was handed off to the awaiting pediatric staff. A male was delivered weighing 3930 g with APGARS of 8 at 1 minute and 9 at 5 minutes. The was taken to the recovery room for transition. Cord blood gases were obtained. The placenta was removed with gentle traction. 30 units of oxytocin were added to IVF and allowed to run freely. The uterus was exteriorized and cleared of all clots and debris. The uterine incision was inspected and found to be without any extensions and was repaired with 0 Vicryl in a running, locked fashion. A second imbricating layer was performed. Uterine atony was noted in which she was given 1 dose of Methergine IM by anesthesia. Upon inspection, the repaired hysterotomy was found to be hemostatic. The uterus was firm and returned to the abdomen. The gutters were cleared of all clots and debris. The fascia was reapproximated with 0 Vicryl in a running fashion. The subcutaneous layer was closed with 2-0 Vicryl in a running fashion. The skin was closed in a subcuticular fashion with 4-0 vicryl. Dermabond and pressure bandage was applied over incision. The patient tolerated the procedure well. Sponge, lap and needle counts were correct x4. The patient was taken to the recovery room in stable condition. Attestation: My Opal Polisher was necessary throughout the procedure(s) for tissue retraction. I understand that section 1842 (b)(7)(D) of the Social Security Act generally prohibits Medicare physician fee schedule payment for the services of [id number] in teaching hospitals when qualified residents are available to furnish such services. I certify that the services for which payment is claimed were medically necessary, and that no qualified resident was available to perform the services. I further understand that these services are subject to post-payment review by the Medicare carrier. I attest to the content of the Intraoperative Record and any orders documented therein. Any exceptions are noted below.
--- NOTE | 2022-12-21 15:13 | Anesthesia Procedure Note ---
Date of Service December 21, 2022 Anesthesia Post Epidural Note Vital Signs Vital Signs: Temp Pulse Resp BP Pulse Ox O2 Del Method 36.7 C 98 H 18 122/75 98 Room Air 12/21/22 14:24 12/21/22 15:08 12/21/22 14:49 12/21/22 15:08 12/21/22 15:08 12/20/22 19:00 Pain Intensity Bilateral Abdomen: Pain Intensity: 5 Notes Mental Status: alert / awake / arousable Nausea / Vomiting: adequately controlled Pain: adequately controlled Airway Patency, RR, SpO2: stable & adequate BP & HR: stable & adequate Hydration State: stable & adequate Neuraxial Anesthesia: was administered and sensory block is resolving Anesthetic Complications: no major complications apparent and Pt Satisfied with anesthetic care Epidural: Removed without complications and With tip intact
--- NOTE | 2022-12-21 15:14 | Anesthesiology Progress Note ---
Date of Service December 21, 2022 Anesthesia Post Procedure Vital Signs Vital Signs: Temp Pulse Resp BP Pulse Ox O2 Del Method 12/21/22 14:49 18 12/21/22 14:39 18 12/21/22 14:29 18 12/21/22 14:18 18 12/21/22 14:24 36.7 C 18 12/20/22 22:48 36.9 C 16 12/20/22 19:00 36.7 C 18 Room Air 12/21/22 15:08 98 H 122/75 98 12/21/22 15:03 104 H 99 12/21/22 14:59 102 H 129/62 12/21/22 14:58 112 H 100 12/21/22 14:53 107 H 100 12/21/22 14:48 110 H 116/59 L 99 12/21/22 14:43 109 H 98 12/21/22 14:38 108 H 98 12/21/22 14:39 104 H 119/66 12/21/22 14:33 117 H 100 12/21/22 14:29 120 H 150/72 H 12/21/22 14:28 119 H 97 12/21/22 14:23 118 H 97 12/21/22 14:18 112 H 115/57 L 96 12/21/22 14:13 114 H 96 12/21/22 14:11 111 H 93 12/21/22 14:08 117 H 128/62 100 12/21/22 12:30 24 12/21/22 12:30 24 12/21/22 12:04 24 12/21/22 12:04 36.8 C 24 12/21/22 13:10 100 H 137/70 12/21/22 13:07 108 H 99 12/21/22 13:08 118 H 148/79 H 12/21/22 13:06 96 H 132/75 12/21/22 13:04 105 H 136/77 12/21/22 13:02 99 12/21/22 13:02 113 H 12/21/22 13:02 103 H 133/68 12/21/22 13:00 109 H 136/69 12/21/22 12:57 105 H 97 12/21/22 12:58 100 H 147/81 H 12/21/22 12:56 105 H 140/79 12/21/22 12:52 91 H 97 06/15/23 12:47 80 96 12/21/22 12:42 83 97 12/21/22 12:43 85 144/82 H 12/21/22 12:37 83 96 12/21/22 12:32 92 H 97 12/21/22 12:27 95 H 118/64 96 12/21/22 12:22 86 97 12/21/22 12:17 94 H 99 12/21/22 12:13 99 H 118/57 L 12/21/22 12:12 98 H 97 12/21/22 12:07 105 H 96 12/21/22 12:08 106 H 84 L 12/21/22 12:02 100 H 94 12/21/22 12:00 102 H 87 L 12/21/22 11:57 96 H 96 12/21/22 11:50 22 12/21/22 11:50 22 12/21/22 11:52 99 H 95 12/21/22 11:35 22 12/21/22 11:35 22 12/21/22 11:47 107 H 96 12/21/22 11:46 113 H 82 L 12/21/22 11:42 121 H 98 12/21/22 11:40 110 H 87 L 12/21/22 11:37 106 H 99 12/21/22 11:32 100 H 96 12/21/22 11:28 99 H 135/92 12/21/22 11:27 36.7 C 12/21/22 11:26 107 H 100 12/21/22 11:21 98 12/21/22 11:21 112 H 12/21/22 11:21 108 H 83 L 12/21/22 11:16 95 H 99 12/21/22 11:13 93 H 126/72 12/21/22 11:11 82 99 12/21/22 11:00 18 12/21/22 11:00 18 12/21/22 11:06 85 98 12/21/22 10:58 88 12/21/22 11:01 95 H 99 12/21/22 10:56 88 99 12/21/22 10:51 90 98 12/21/22 10:30 18 12/21/22 10:30 18 12/21/22 10:46 77 99 12/21/22 10:42 82 126/76 12/21/22 10:41 79 98 12/21/22 10:36 100 H 99 12/21/22 10:31 90 98 12/21/22 10:27 80 117/69 12/21/22 10:26 80 99 12/21/22 10:21 66 99 12/21/22 10:16 91 H 98 12/21/22 10:12 96 H 108/60 12/21/22 10:11 91 H 100 12/21/22 10:00 18 12/21/22 10:00 18 12/21/22 10:06 114 H 100 12/21/22 10:01 87 98 12/21/22 09:57 97 H 112/62 12/21/22 09:56 86 97 12/21/22 09:51 78 95 12/21/22 09:46 88 96 12/21/22 09:41 86 112/59 L 96 12/21/22 09:39 92 H 124/73 12/21/22 09:37 83 122/62 12/21/22 09:36 89 94 12/21/22 09:35 86 125/62 12/21/22 09:30 22 12/21/22 09:30 22 12/21/22 09:33 75 130/63 12/21/22 09:31 95 H 99 12/21/22 09:32 92 H 139/58 L 12/21/22 09:29 83 136/89 12/21/22 09:26 97 H 99 12/21/22 09:21 81 96 12/21/22 09:16 76 98 12/21/22 09:17 75 136/75 12/21/22 09:11 82 98 12/21/22 09:06 88 96 12/21/22 09:00 20 12/21/22 09:00 20 12/21/22 09:01 80 150/90 H 100 12/21/22 08:56 96 H 100 12/21/22 08:45 22 12/21/22 08:45 22 12/21/22 08:51 86 98 12/21/22 08:46 87 96 12/21/22 08:47 84 135/87 12/21/22 08:41 102 H 97 12/21/22 08:36 104 H 97 12/21/22 08:31 94 H 96 12/21/22 08:28 103 H 86 L 12/21/22 08:26 95 H 96 12/21/22 08:21 96 12/21/22 08:21 96 H 12/21/22 08:21 119 H 86 L 12/21/22 08:16 91 H 132/81 97 12/21/22 08:15 100 H 22 88 L 12/21/22 08:11 96 H 97 12/21/22 08:08 105 H 91 12/21/22 08:06 94 H 99 12/21/22 07:44 20 12/21/22 07:44 20 12/21/22 08:01 95 H 151/77 H 98 12/21/22 07:59 117 H 88 L 12/21/22 07:56 93 H 97 12/21/22 07:51 101 H 100 12/21/22 07:46 120 H 97 12/21/22 07:41 104 H 99 12/21/22 07:36 95 H 98 12/21/22 07:31 78 100 12/21/22 07:32 80 150/73 H 12/21/22 07:26 80 100 12/21/22 07:15 20 12/21/22 07:15 36.9 C 20 12/21/22 07:21 78 100 12/21/22 07:16 82 100 12/21/22 07:17 74 149/80 H 12/21/22 07:11 88 100 12/21/22 07:09 85 158/95 H 12/21/22 07:06 87 100 12/21/22 07:01 88 100 12/21/22 07:02 86 153/92 H 12/21/22 06:56 83 100 12/21/22 06:51 81 100 12/21/22 06:46 88 138/84 100 12/21/22 06:41 108 H 97 12/21/22 06:36 96 H 100 12/21/22 06:31 91 H 100 12/21/22 06:32 90 140/77 12/21/22 06:28 102 H 93 12/21/22 06:26 105 H 98 12/21/22 06:21 74 96 12/21/22 06:16 96 12/21/22 06:16 76 12/21/22 06:16 75 130/69 12/21/22 06:11 75 97 06/15/23 06:06 74 97 12/21/22 06:01 75 133/73 98 12/21/22 05:56 76 97 12/21/22 05:51 74 98 12/21/22 05:47 90 143/85 H 12/21/22 05:46 76 99 12/21/22 05:41 75 97 12/21/22 05:36 70 99 12/21/22 05:33 18 12/21/22 05:33 36.9 C 18 12/21/22 05:31 98 H 98 12/21/22 05:32 90 132/65 12/21/22 05:26 84 96 12/21/22 05:21 90 95 12/21/22 05:16 86 96 12/21/22 05:17 86 135/74 12/21/22 05:11 83 95 12/21/22 05:06 87 95 12/21/22 05:02 95 H 136/71 12/21/22 05:01 80 96 12/21/22 04:56 81 97 12/21/22 04:51 89 98 12/21/22 04:47 70 168/90 H 12/21/22 04:46 77 98 12/21/22 04:41 85 98 12/21/22 04:36 82 99 12/21/22 04:33 76 145/84 H 12/21/22 04:31 89 97 12/21/22 04:26 105 H 98 12/21/22 04:21 98 12/21/22 04:21 80 12/21/22 04:21 85 94 12/21/22 04:18 93 H 168/92 H 12/21/22 04:16 85 99 12/21/22 04:13 84 94 12/21/22 04:11 82 98 12/21/22 04:06 91 H 98 12/21/22 04:01 79 95 12/21/22 04:02 88 136/70 93 12/21/22 03:56 76 97 12/21/22 03:51 88 99 12/21/22 03:46 77 143/87 H 96 12/21/22 03:41 73 97 12/21/22 03:36 76 95 12/21/22 03:32 77 159/87 H 12/21/22 03:31 77 97 12/21/22 03:29 18 12/21/22 03:29 36.9 C 18 12/21/22 03:26 88 98 12/21/22 03:21 85 96 12/21/22 03:16 91 H 142/89 H 98 12/21/22 03:11 87 98 12/21/22 03:06 80 96 12/21/22 03:01 98 12/21/22 03:01 83 12/21/22 03:01 78 133/74 12/21/22 02:56 100 H 98 12/21/22 02:51 74 95 12/21/22 02:46 86 97 12/21/22 02:47 85 134/73 12/21/22 02:41 83 94 12/21/22 02:37 95 H 91 12/21/22 02:36 71 95 12/21/22 02:32 77 129/67 12/21/22 02:31 75 96 12/21/22 02:26 75 96 12/21/22 02:21 75 97 12/21/22 02:18 91 H 93 12/21/22 02:16 76 128/66 96 12/21/22 02:11 75 95 12/21/22 02:06 75 95 12/21/22 02:03 77 128/62 12/21/22 02:01 71 96 12/21/22 01:56 74 95 12/21/22 01:51 75 95 12/21/22 01:46 77 126/60 95 12/21/22 01:41 86 96 12/21/22 01:36 85 97 12/21/22 01:31 36.9 C 88 18 97 12/21/22 01:26 80 96 12/21/22 01:21 108 H 97 12/21/22 01:19 79 94 12/21/22 01:16 95 12/21/22 01:16 77 06 01:16 81 133/74 12/21/22 01:11 79 95 12/21/22 01:09 80 94 12/21/22 01:06 79 95 12/21/22 01:01 79 135/73 95 12/21/22 00:56 82 96 12/21/22 00:51 79 96 12/21/22 00:46 96 12/21/22 00:46 80 12/21/22 00:46 81 138/70 12/21/22 00:41 89 97 12/21/22 00:36 107 H 94 12/21/22 00:34 88 94 12/21/22 00:33 87 129/66 12/21/22 00:31 95 H 97 12/21/22 00:26 97 H 95 12/21/22 00:21 111 H 95 12/21/22 00:16 97 12/21/22 00:16 109 H 12/21/22 00:16 106 H 139/76 12/21/22 00:11 92 H 96 12/21/22 00:06 89 96 12/21/22 00:01 88 96 12/21/22 00:02 90 139/76 12/20/22 23:56 90 96 12/20/22 23:51 90 96 12/20/22 23:46 119 H 96 12/20/22 23:47 36.8 C 93 H 18 135/63 12/20/22 23:41 106 H 95 12/20/22 23:36 92 H 97 12/20/22 23:32 82 139/82 12/20/22 23:31 91 H 97 12/20/22 23:26 96 H 98 12/20/22 23:21 97 H 97 12/20/22 23:17 90 136/79 12/20/22 23:16 88 96 12/20/22 23:11 100 H 95 12/20/22 23:06 84 97 12/20/22 23:03 91 H 135/88 12/20/22 23:01 93 H 95 12/20/22 22:56 89 97 12/20/22 22:51 99 H 96 12/20/22 22:48 93 H 142/92 H 12/20/22 22:46 99 H 97 12/20/22 22:41 89 96 12/20/22 22:36 98 H 97 12/20/22 22:31 104 H 138/87 98 12/20/22 22:26 102 H 95 12/20/22 22:21 81 97 12/20/22 22:16 83 132/83 97 12/20/22 22:11 87 96 12/20/22 22:06 84 96 12/20/22 22:01 88 96 12/20/22 22:02 86 134/83 12/20/22 21:56 85 97 12/20/22 21:51 89 98 12/20/22 21:47 90 136/80 12/20/22 21:46 91 H 99 12/20/22 21:41 107 H 98 12/20/22 21:36 97 H 100 12/20/22 21:31 87 100 12/20/22 21:32 90 137/87 12/20/22 21:26 94 H 100 12/20/22 21:21 97 H 100 12/20/22 21:20 18 12/20/22 21:20 36.6 C 18 12/20/22 21:16 98 12/20/22 21:16 82 06 21:16 83 143/79 H 12/20/22 21:11 81 98 12/20/22 21:06 83 97 12/20/22 21:04 87 133/77 12/20/22 21:01 104 H 98 12/20/22 20:56 85 97 12/20/22 20:51 82 96 12/20/22 20:48 86 141/85 H 12/20/22 20:46 88 97 12/20/22 20:41 88 97 12/20/22 20:36 89 97 12/20/22 20:33 85 142/79 H 12/20/22 20:31 86 96 12/20/22 20:26 88 97 12/20/22 20:21 82 97 12/20/22 20:16 88 98 12/20/22 20:17 82 142/86 H 12/20/22 20:11 90 99 12/20/22 20:06 92 H 98 12/20/22 20:01 87 139/81 98 12/20/22 19:56 92 H 97 12/20/22 19:51 100 H 99 12/20/22 19:46 96 H 138/80 98 12/20/22 19:41 95 H 98 12/20/22 19:36 96 H 100 12/20/22 19:31 87 99 12/20/22 19:32 85 132/77 12/20/22 19:26 83 99 12/20/22 19:21 91 H 99 12/20/22 19:19 90 91 12/20/22 19:16 94 H 99 12/20/22 19:17 91 H 138/77 12/20/22 19:11 97 H 98 12/20/22 19:06 89 100 12/20/22 19:02 85 133/68 12/20/22 19:01 94 H 99 12/20/22 18:56 86 97 12/20/22 18:51 86 97 12/20/22 18:46 86 97 12/20/22 18:47 86 130/81 12/20/22 18:41 84 97 12/20/22 18:36 84 98 12/20/22 18:32 84 132/82 12/20/22 18:31 89 99 12/20/22 18:26 97 H 100 12/20/22 18:21 111 H 99 12/20/22 18:16 99 12/20/22 18:16 87 12/20/22 18:16 90 113/58 L 12/20/22 18:11 85 98 12/20/22 18:06 85 99 12/20/22 18:01 99 12/20/22 18:01 82 12/20/22 18:01 86 115/59 L 12/20/22 17:56 90 99 12/20/22 17:51 99 H 99 12/20/22 17:46 89 100 12/20/22 17:47 36.8 C 90 20 122/65 12/20/22 17:41 87 100 12/20/22 17:36 88 100 12/20/22 17:32 90 118/69 12/20/22 17:31 77 100 12/20/22 17:26 79 99 12/20/22 17:21 80 100 12/20/22 17:16 90 100 12/20/22 17:17 88 120/66 12/20/22 17:11 89 100 12/20/22 17:06 88 100 12/20/22 17:01 83 98 12/20/22 17:02 85 124/68 12/20/22 16:56 79 99 12/20/22 16:51 82 99 12/20/22 16:46 76 122/66 100 12/20/22 16:41 74 99 12/20/22 16:36 78 100 12/20/22 16:31 87 100 12/20/22 16:32 80 123/58 L 12/20/22 16:26 73 100 12/20/22 16:21 89 100 12/20/22 16:22 93 H 92 12/20/22 16:16 78 132/69 100 12/20/22 16:11 71 99 12/20/22 16:06 72 98 12/20/22 16:03 78 128/66 12/20/22 16:01 71 98 12/20/22 15:56 73 98 12/20/22 15:51 74 97 12/20/22 15:47 81 129/68 12/20/22 15:46 80 96 12/20/22 15:41 78 97 12/20/22 15:36 76 97 12/20/22 15:31 93 H 97 12/20/22 15:32 86 131/69 12/20/22 15:26 96 H 99 12/20/22 15:21 89 97 12/20/22 15:17 90 133/60 12/20/22 15:16 90 97 Pain Intensity Bilateral Abdomen: Pain Intensity: 5 Transfer of Care Handoff Completed per policy Notes Mental Status: alert / awake / arousable and participated in evaluation Nausea / Vomiting: adequately controlled Pain: adequately controlled Airway Patency, RR, SpO2: stable & adequate BP & HR: stable & adequate Hydration State: stable & adequate Neuraxial Anesthesia: was administered and sensory block is resolving Anesthetic Complications: no major complications apparent and Pt Satisfied with anesthetic care
[2022-12-21] MEDS: OXYTOCIN 30 UNITS in LACTATED RINGER'S 1,000 ML IV SCH (17:58)
[2022-12-21] MEDS ORDERED: NALBUPHINE HCL INJ 10 MG/ML AMP IV PRN (18:01)
[2022-12-21] MEDS ORDERED: HYDROmorphone INJ 0.5 MG/0.5 ML SYR IV PRN (18:01)
[2022-12-21] MEDS ORDERED: ePHEDrine sulfate 50 MG/ML AMP IV PRN (18:01)
[2022-12-21] MEDS ORDERED: MEPERIDINE HCL 25 MG/ML CARP/VIAL IV PRN (18:01)
[2022-12-21] MEDS ORDERED: MoRPHine SULFATE PF 1 MG/ML 10 ML AMP/VIAL INT SPINAL ONE (18:01)
[2022-12-21] MEDS ORDERED: NALOXONE HCL 1 MG in SODIUM CHLORIDE 0.9% 1000ML 1,000 ML IV PRN (18:01)
[2022-12-21] MEDS ORDERED: NALOXONE HCL 0.08 MG in SYRINGE 1.8 ML IV PRN (18:01)
[2022-12-21] MEDS ORDERED: LACTATED RINGER'S 500 ML IV PRN (18:01)
[2022-12-21] MEDS ORDERED: NALOXONE HCL 0.4 MG/1 ML VIAL/CARP IV PRN (18:01)
[2022-12-21] MEDS ORDERED: MoRPHine SULFATE 2 MG/ML CARP IV PRN (18:01)
[2022-12-21] MEDS ORDERED: SODIUM CHLORIDE 0.9% 1000ML 1,000 ML IV SCH (18:15)
[2022-12-21] MEDS ORDERED: DC INTRASPINAL MORPHINE SCH (18:15)
[2022-12-21] MEDS ORDERED: NO NARCOTICS OR SEDATIVES SCH (18:15)
[2022-12-21] MEDS: DOCUSATE SODIUM 100 MG CAP PO SCH (21:52)
[2022-12-21] MEDS: SIMETHICONE 80 MG CHEW PO SCH ×2 (22:56→23:23)
[2022-12-21] MEDS: LACTATED RINGER'S 1,000 ML IV SCH (22:57)
[2022-12-22] MEDS: OXYTOCIN 30 UNITS in LACTATED RINGER'S 1,000 ML IV SCH (02:07)
[2022-12-22 06:51] LABS: Basophils # (auto) 0.06 K/uL (0-0.2); Basophils % (auto) 0.3 %; Eosinophils # (auto) 0.23 K/uL (0-0.50); Eosinophils % (auto) 1.3 %; Hematocrit (blood only) 27.5 % (37.0-47.0); Hemoglobin 9.6 g/dl (12.0-16.0); Immature Granulocytes # (auto) 0.13 K/uL (0.01-0.20); Immature Granulocytes % (auto) 0.7 %; Lymphocytes # (auto) 1.93 K/uL (1.2-3.4); Lymphocytes % (auto) 11.1 %; Mean Corpuscular Hemoglobin 31.9 pg (25.0-34.0); Mean Corpuscular Hgb Conc 34.9 g/dL (32.0-36.0); Mean Corpuscular Volume 91.4 fL (80.0-100.0); Mean Platelet Volume 10.2 fL (9.4-12.4); Monocytes # (auto) 1.53 K/uL (0.11-0.59); Monocytes % (auto) 8.8 %; Neutrophils # (auto) 13.48 K/uL (1.40-6.50); Neutrophils % (auto) 77.8 %; Platelet Count 186 K/uL (130-400); RDW Coefficient of Variation 13.6 % (11.5-14.5); RDW Standard Deviation 45.4 fL (36.4-46.3); Red Blood Count 3.01 M/uL (4.20-5.40); White Blood Count 17.36 K/ul (4.8-10.8)
[2022-12-22] MEDS: PRENATAL VITAMIN 1 TAB PO SCH (08:35)
[2022-12-22] MEDS: DOCUSATE SODIUM 100 MG CAP PO SCH ×2 (08:35→20:44)
[2022-12-22] MEDS: FERROUS SULFATE 325 MG TAB PO SCH (08:35)
[2022-12-22] MEDS: IBUPROFEN 600 MG TAB PO PRN ×2 (08:35→17:47)
[2022-12-22] MEDS: SIMETHICONE 80 MG CHEW PO SCH ×3 (08:35→20:44)
--- NOTE | 2022-12-22 11:02 | Obstetrical Progress Note ---
Date of Service December 22, 2022 Subjective Ambulation: ambulating normally Voiding: no voiding problems Passing Gas:: No Diet Tolerance:: regular diet Feeding Type:: breast feeding Current Pain Level(1-10): 0 doing good Physical Exam Constitutional WD/WN, vitals as above Gastrointestinal (Abdomen) Inspection/Auscultation: abdomen normal to inspection incision c/d/i Musculoskeletal Extremities: extremities normal to inspection neg Irvin's Skin no rashes, warm and dry Neurologic patellar DTR's 2+ bilat, sensation intact Psychiatric A+Ox3, euthymic affect Results & Data Vital Signs (Past 12 Hours) Vital Signs Temp Pulse Resp BP Pulse Ox O2 Del Method 12/22/22 04:00 18 95 12/22/22 03:00 18 97 12/22/22 02:00 18 95 12/22/22 00:00 18 96 12/22/22 00:50 18 95 12/22/22 00:50 37.6 C H 102 H 18 101/65 95 Room Air 12/22/22 04:50 18 95 12/22/22 04:50 37 C 97 H 18 107/68 95 Room Air Laboratory Results 12/18/22 12/18/22 12/18/22 07:37 09:15 09:15 WBC 10.27 RBC 4.00 L Hgb 12.7 Hct 36.9 L MCV 92.3 MCH 31.8 MCHC 34.4 RDW Std Deviation 44.5 RDW Coeff of [place] 13.2 Plt Count 243 MPV 10.2 Immature Gran % (Auto) Neut % (Auto) Lymph % (Auto) [place] % (Auto) Eos % (Auto) Baso % (Auto) Neut # (Auto) Lymph # (Auto) [place] # (Auto) Eos # (Auto) Baso # (Auto) Immature Gran # (Auto) SARS-CoV-2, RNA, NAAT NEGATIVE Blood Type A Positive Antibody Screen NEGATIVE 12/21/22 12/21/22 12/22/22 12:18 12:21 06:30 WBC 23.52 H 17.36 H RBC 4.15 L 3.01 L Hgb 13.3 9.6 L D Hct 38.0 27.5 L MCV 91.6 91.4 MCH 32.0 31.9 MCHC 35.0 34.9 RDW Std Deviation 44.8 45.4 RDW Coeff of [place] 13.4 13.6 Plt Count 216 186 MPV 10.4 10.2 Immature Gran % (Auto) 0.7 0.7 Neut % (Auto) 89.4 77.8 Lymph % (Auto) 4.4 11.1 [place] % (Auto) 5.2 8.8 Eos % (Auto) 0.0 1.3 Baso % (Auto) 0.3 0.3 Neut # (Auto) 21.02 H 13.48 H Lymph # (Auto) 1.04 L 1.93 [place] # (Auto) 1.22 H 1.53 H Eos # (Auto) 0.01 0.23 Baso # (Auto) 0.07 0.06 Immature Gran # (Auto) 0.16 0.13 SARS-CoV-2, RNA, NAAT Blood Type A Positive Antibody Screen NEGATIVE
[2022-12-22] MEDS ORDERED: diphenhydrAMINE Capsule 25 MG CAP PO PRN (12:00)
[2022-12-22] MEDS ORDERED: PROMETHAZINE HCL 25 MG in SODIUM CHLORIDE 0.9% 50 ML IV PRN (12:02)
[2022-12-22] MEDS ORDERED: diphenhydrAMINE 50 MG/ML VIAL IV PRN (12:02)
[2022-12-22] MEDS ORDERED: KETOROLAC 30 MG/ML VIAL IV PRN (12:02)
[2022-12-22] MEDS ORDERED: ONDANSETRON INJ 2 MG/ML 2 ML VIAL IV PRN (12:02)
[2022-12-22] MEDS: oxyCODONE/ACETAMINOPHEN 5mg/325mg TAB PO PRN (17:48)
[2022-12-22] MEDS ORDERED: bisacodyL 5 MG TABEC PO SCH (20:00)
[2022-12-23] MEDS: oxyCODONE/ACETAMINOPHEN 5mg/325mg TAB PO PRN (03:39)
[2022-12-23] MEDS: IBUPROFEN 600 MG TAB PO PRN (03:39)
[2022-12-23 06:54] LABS: Hematocrit (blood only) 27.9 % (37.0-47.0); Hemoglobin 9.5 g/dl (12.0-16.0)
--- NOTE | 2022-12-23 08:04 | Obstetrical Progress Note ---
Date of Service December 23, 2022 Assessment & Plan (1) Normal course: We will plan to discharge home today if baby is discharged Instructions reviewed with patient Follow-up in clinic for wound check in 2 weeks Subjective Ambulation: ambulating normally Voiding: no voiding problems Passing Gas:: Yes Diet Tolerance:: regular diet Lochia:: Small Feeding Type:: breast feeding Current Pain Level(1-10): 1 Doing well, no complaints. Wants to go home today Physical Exam Constitutional WD/WN, vitals as above Respiratory normal respiratory effort, lungs clear to auscultation Cardiovascular RRR, no murmur, no edema Gastrointestinal (Abdomen) normal bowel sounds, soft, nontender, no hepatosplenomegaly Incision clean dry intact, well-healing, Dermabond in place Skin no rashes, warm and dry Results & Data Vital Signs (Past 12 Hours) Vital Signs Temp Pulse Resp BP Pulse Ox O2 Del Method 12/22/22 23:35 Room Air 12/22/22 23:15 36.7 C 76 20 114/63 98 Room Air Diagnostic Findings Laboratory Results WBC 17.36 K/ul (4.8-10.8) H 12/22/22 06:30 RBC 3.01 M/uL (4.20-5.40) L 12/22/22 06:30 Hgb 9.5 g/dl (12.0-16.0) L 12/23/22 06:31 Hct 27.9 % (37.0-47.0) L 12/23/22 06:31 MCV 91.4 fL (80.0-100.0) 12/22/22 06:30 MCH 31.9 pg (25.0-34.0) 12/22/22 06:30 MCHC 34.9 g/dL (32.0-36.0) 12/22/22 06:30 RDW Std Deviation 45.4 fL (36.4-46.3) 12/22/22 06:30 RDW Coeff of [place] 13.6 % (11.5-14.5) 12/22/22 06:30 Plt Count 186 K/uL (130-400) 12/22/22 06:30 MPV 10.2 fL (9.4-12.4) 12/22/22 06:30 Immature Gran % (Auto) 0.7 % 06/16/23 06:30 Neut % (Auto) 77.8 % 12/22/22 06:30 Lymph % (Auto) 11.1 % 12/22/22 06:30 [place] % (Auto) 8.8 % 12/22/22 06:30 Eos % (Auto) 1.3 % 12/22/22 06:30 Baso % (Auto) 0.3 % 12/22/22 06:30 Neut # (Auto) 13.48 K/uL (1.40-6.50) H 12/22/22 06:30 Lymph # (Auto) 1.93 K/uL (1.2-3.4) 12/22/22 06:30 [place] # (Auto) 1.53 K/uL (0.11-0.59) H 12/22/22 06:30 Eos # (Auto) 0.23 K/uL (0-0.50) 12/22/22 06:30 Baso # (Auto) 0.06 K/uL (0-0.2) 12/22/22 06:30 Immature Gran # (Auto) 0.13 K/uL (0.01-0.20) 12/22/22 06:30 SARS-CoV-2, RNA, NAAT NEGATIVE (NEGATIVE) 12/18/22 07:37 Blood Type A Positive 12/21/22 12:18 Antibody Screen NEGATIVE 12/21/22 12:18
[2022-12-23] MEDS: PRENATAL VITAMIN 1 TAB PO SCH (08:34)
[2022-12-23] MEDS: SIMETHICONE 80 MG CHEW PO SCH (08:34)
[2022-12-23] MEDS: FERROUS SULFATE 325 MG TAB PO SCH (08:34)
[2022-12-23] MEDS: DOCUSATE SODIUM 100 MG CAP PO SCH (08:34)
[2022-12-23] MEDS ORDERED: bisacodyL 10 MG SUPP PR PRN (13:56)
== END 2022-12-23 13:40 | disposition home or self-care (01) | DRG 788 ==
LOC: 4S1 07:19 → 4E2 12-21 17:07